=== PATIENT | female | born 1995 | race American Indian/Alaskan Native ===

== ENCOUNTER 2017-09-18 17:50 | Emergency (ER) | payer OTHER ==
[~2017-09-18] VITALS: Ht 154.9 cm; Wt 61.2 kg
[2017-09-18] MEDS ORDERED: IBUPROFEN600 MG PO (18:17)
[2017-09-18] MEDS ORDERED: CYCLOBENZAPRINE5 MG PO (18:17)
--- OUTSIDE RECORDS SUMMARY | 2017-09-18 19:41 | XMS | Encounter Summary ---
Demographics + + + | Address | [address] | | | [place] [address] | + + + | Home Phone | | + + + | Preferred Language | Unknown | + + + | Marital Status | Single | + + + | Yarsani Affiliation | Unknown | + + + | Race | Unknown | + + + | Ethnic Group | Unknown | + + + Author + + + | Author | [facility] | + + + | Organization | [facility] | + + + | Address | Unknown | + + + | Phone | Unavailable | + + + Support + + + + + | Name | Relationship | Address | Phone | + + + + + | Clari Curry | ECON | [address] | | | | | [place] | | | | | [address] | | + + + + + Care Team Providers + +------+ + | Care City Magistrate Name | Role | Phone | + +------+ + PCP | Unavailable | + +------+ + Reason for Visit + + + | Reason | Comments | + + + | Abdominal Pain | | + + + | Rash | scattered to arms | + + + Auth/Cert +--------+--------+ + + + + | Status | Reason | Specialty | Diagnoses / | Referred By | Referred To | | | | | Procedures | Contact | Contact | +--------+--------+ + + + + | | | | Diagnoses | | | | | | | Acute | | | | | | | cystitis | | | | | | | with | | | | | | | hematuria | | | +--------+--------+ + + + + Encounter Details +--------+ + + + + | Date | Type | Department | Care Team | Description | +--------+ + + + + | 09/08/ | Emergency | [facility] | Talat Fraser DO | Acute cystitis with | | 2017 | [facility] | [address] | hematuria (Primary | | | | Emergency Department | EMERGENCY DEPARTMENT | Dx) | | | | [address] | [place] [address] | | | | | [place] [address] | [phone] | | | | | [phone] | | | +--------+ + + + + Social History + +-------+ +--------+------+ | Tobacco Use | Types | Packs/Day | Years | Date | | | | | Used | | + +-------+ +--------+------+ | Current Every Day | | 1 | 5 | | | Smoker | | | | | + +-------+ +--------+------+ + + +---------+ + | Alcohol Use | Drinks/We | oz/Week | Comments | | | ek | | | + + +---------+ + | No | | | | + + +---------+ + + + + | Sex Assigned at | Date Recorded | | | | + + + | Not on file | | + + + as of this encounter Last Filed Vital Signs + + + + | Vital Sign | Reading | Time Taken | + + + + | Blood Pressure | 94/50 | 09/08/2017 4:15 AM PDT | + + + + | Pulse | 80 | 09/08/2017 4:15 AM PDT | + + + + | Temperature | 36.1 C (97 F) | 09/08/2017 4:15 AM PDT | + + + + | Respiratory Rate | 16 | 09/08/2017 4:15 AM PDT | + + + + | Oxygen Saturation | 99% | 09/08/2017 4:15 AM PDT | + + + + | Inhaled Oxygen | - | - | | Concentration | | | + + + + | Weight | 58.9 kg (129 lb 13.6 | 09/08/2017 1:30 AM PDT | | | oz) | | + + + + | Height | - | - | + + + + | Body Mass Index | - | - | + + + + in this encounter Discharge Instructions The following attachments cannot be sent through Care Everywhere.Urinary Tract Infections i n Women (Cook Islander)in this encounter Medications at Time of Discharge + + +--------+---------+ + + | Medication | Sig. | Disp. | Refills | Start | End Date | | | | | | Date | | + + +--------+---------+ + + | acetaminophen | Take 500 mg by mouth | | | | | | (TYLENOL) 500 MG | every 6 (six) hours | | | | | | tablet | as needed for Pain. | | | | | + + +--------+---------+ + + | | Take 1 tablet by | | | | | | HYDROcodone-acetamin | mouth every 6 (six) | | | | | | ophen (NORCO) 5-325 | hours as needed for | | | | | | MG per tablet | Pain. | | | | | + + +--------+---------+ + + | ibuprofen (MOTRIN) | Take 600 mg by mouth | | | | | | 600 MG tablet | every 6 (six) hours | | | | | | | as needed for Pain. | | | | | + + +--------+---------+ + + | | Take 1 tablet by | | | | | | oxyCODONE-acetaminop | mouth every 4 (four) | | | | | | hen (PERCOCET) 5-325 | hours as needed for | | | | | | MG per tablet | Pain. | | | | | + + +--------+---------+ + + | | Take 1 tablet by | 14 | 0 | 09/09/19 | | | sulfamethoxazole-tri | mouth 2 (two) times | tablet | | 18 | 8 | | methoprim (BACTRIM | daily for 7 days. | | | | | | DS) 800-160 MG per | | | | | | | tablet | | | | | | + + +--------+---------+ + + as of this encounter Plan of Treatment Not on fileas of this encounter Results Urine culture (09/08/2017 3:07 AM) + + + + | Component | Value | Ref Range | + + + + | Specimen Description | URINE, COLLECTION NOT GIVEN | | + + + + | CULTURE | >100,000 CFU/ML | | + + + + | CULTURE | ESCHERICHIA COLI (A) | | + + + + + + + | Specimen | Performing Laboratory | + + + | Urine, Unspecified | [facility] [address] [place], | | Source | [place] [address] | + + + + + +--------+ + | Organism | Antibiotic | Method | Susceptibility | + + +--------+ + | Escherichia coli | Ampicillin | JAZLYN | SUSCEPTIBLE: | | | | | Sensitive | + + +--------+ + | Escherichia coli | Ampicillin + | JAZLYN | SUSCEPTIBLE: | | | Sulbactam | | Sensitive | + + +--------+ + | Escherichia coli | Cefepime | JAZLYN | SUSCEPTIBLE: | | | | | Sensitive | + + +--------+ + | Escherichia coli | Cefoxitin | JAZLYN | SUSCEPTIBLE: | | | | | Sensitive | + + +--------+ + | Escherichia coli | Ceftazidime | JAZLYN | SUSCEPTIBLE: | | | | | Sensitive | + + +--------+ + | Escherichia coli | Ceftriaxone | JAZLYN | SUSCEPTIBLE: | | | | | Sensitive | + + +--------+ + | Escherichia coli | Ciprofloxacin | JAZLYN | SUSCEPTIBLE: | | | | | Sensitive | + + +--------+ + | Escherichia coli | Gentamicin | JAZLYN | SUSCEPTIBLE: | | | | | Sensitive | + + +--------+ + | Escherichia coli | Levofloxacin | JAZLYN | SUSCEPTIBLE: | | | | | Sensitive | + + +--------+ + | Escherichia coli | Nitrofurantoin | JAZLYN | SUSCEPTIBLE: | | | | | Sensitive | + + +--------+ + | Escherichia coli | Tobramycin | JAZLYN | SUSCEPTIBLE: | | | | | Sensitive | + + +--------+ + | Escherichia coli | Trimethoprim + | JAZLYN | SUSCEPTIBLE: | | | Sulfamethoxazole | | Sensitive | + + +--------+ + Urinalysis (reflex to micro/reflex to culture) (09/08/2017 3:07 AM) + + + + | Component | Value | Ref Range | + + + + | COLOR UA | CIELO | | + + + + | CLARITY | HAZY | | + + + + | Specific [place], UA | 1.027 | 1.002 - 1.030 | + + + + | LEUKOCYTE ESTERASE | MODERATE (A) | NEGATIVE | + + + + | NITRITE | POSITIVE (A) | NEGATIVE | + + + + | UROBILINOGEN | 2.0 (H) | <1.1 mg/dL | + + + + | PROTEIN | 30 (A) | NEGATIVE mg/dL | + + + + | PH,URINE | 5.0 | 5.0 - 8.0 | + + + + | BLOOD | SMALL (A) | NEGATIVE | + + + + | KETONES | TRACE (A) | NEGATIVE mg/dL | + + + + | BILIRUBIN | NEGATIVE | NEGATIVE | + + + + | GLUCOSE | NEGATIVE | NEGATIVE mg/dL | + + + + | WBC | 26-49 | 0 - 5 /hpf | + + + + | RBC | 3-5 | 0 - 5 /hpf | + + + + | BACTERIA | 2+ (A) | NONE SEEN | + + + + | EPITHELIAL | 6-10 | /lpf | + + + + | Mucus, UA | 4+Comment: Testing performed at [facility];[address] | | | | [address];[place] [address] | | + + + + + + + | Specimen | Performing Laboratory | + + + | Urine, Clean Catch | [facility] [address] [place] [address] | + + + Urine test (LAB) (09/08/2017 3:07 AM) + + + + | Component | Value | Ref Range | + + + + | Preg Test, Ur | NEGATIVEComment: Testing performed at | NEGATIVE | | | [facility];[address] [place] [address];[place] [address] | | + + + + + + + | Specimen | Performing Laboratory | + + + | Urine - Urine, Clean | [facility] [address] [place] [address] | | Catch | | + + + CBC W/Auto Diff (Reflex to Manual) (09/08/2017 2:25 AM) + + + + | Component | Value | Ref Range | + + + + | WBC | 7.83 | 3.80 - 11.00 K/uL | + + + + | RBC | 4.54 | 3.70 - 5.10 M/uL | + + + + | HGB | 12.4 | 11.3 - 15.5 g/dL | + + + + | HCT | 37.0 | 34.0 - 46.0 % | + + + + | MCV | 81.5 | 80.0 - 100.0 fl | + + + + | MCH | 27.4 | 27.0 - 34.0 pg | + + + + | MCHC | 33.6 | 32.0 - 35.5 g/dL | + + + + | RDW SD | 44.6 | 37 - 53 fl | + + + + | PLT | 265 | 150 - 400 K/uL | + + + + | MPV | 8.9 | fl | + + + + | DIFF TYPE | AUTOMATED | | + + + + | NEUTROPHILS | 68.04 | % | + + + + | LYMPHOCYTES | 24.10 | % | + + + + | MONOCYTES | 6.17 | % | + + + + | EOSINOPHILS | 0.92 | % | + + + + | BASOPHILS | 0.77 | % | + + + + | NEUTROPHILS ABS | 5.33 | 1.90 - 7.40 K/uL | + + + + | LYMPHOCYTES ABS | 1.89 | 1.00 - 3.90 K/uL | + + + + | MONOCYTES ABS | 0.48 | 0.00 - 0.80 K/uL | + + + + | EOSINOPHILS ABS | 0.07 | 0.00 - 0.50 K/uL | + + + + | BASOPHILS ABS | 0.06Comment: Testing performed at [facility];[address] | 0.00 - 0.10 K/uL | | | [address];[place] [address] | | + + + + + + + | Specimen | Performing Laboratory | + + + | | [address] [place] [address] | + + + C-reactive protein (09/08/2017 1:52 AM) + + + + | Component | Value | Ref Range | + + + + | CRP | 1.9 (H)Comment: Testing performed at | <0.5 mg/dL | | | [facility];[address]ior[address] [facility];[place] [address] | | + + + + + + + | Specimen | Performing Laboratory | + + + | Blood | [facility] [address] [facility] [place] [address] | + + + Lipase (09/08/2017 1:52 AM) + + + + | Component | Value | Ref Range | + + + + | LIPASE | 102Comment: Testing performed at [facility];8 | 73 - 393 U/L | | | [facility];[place] [address] | | + + + + + + + | Specimen | Performing Laboratory | + + + | Blood | [facility] [address] [place] [address] [facility] [place] [place] [address] | + + + Comprehensive metabolic panel (09/08/2017 1:52 AM) + + + + | Component | Value | Ref Range | + + + + | SODIUM | 137 | 135 - 145 mmol/L | + + + + | POTASSIUM | 3.9Comment: [facility] HEMOLYSIS | 3.5 - 4.9 mmol/L | + + + + | CHLORIDE | 106 | 99 - 109 mmol/L | + + + + | CO2 | 24 | 23 - 32 mmol/L | + + + + | ANION GAP AGAP | 11 | 5 - 20 mmol/L | + + + + | GLUCOSE | 94 | 65 - 99 mg/dL | + + + + | BUN | 14 | 8 - 25 mg/dL | + + + + | CREATININE | 0.68 | 0.50 - 1.00 mg/dL | + + + + | BUN/CREAT | 20 | | + + + + | CALCIUM | 9.2 | 8.5 - 10.5 mg/dL | + + + + | TOTAL PROTEIN | 7.7 | 6.3 - 8.2 g/dL | + + + + | Albumin | 3.6 | 3.6 - 5.0 g/dL | + + + + | GLOBULIN | 4.1 | 1.3 - 4.9 g/dL | + + + + | A/G | 0.9 (L) | 1.0 - 2.4 | + + + + | TBIL | 1.0 | 0.1 - 1.5 mg/dL | + + + + | ALK PHOS | 87 | 35 - 115 U/L | + + + + | AST | 31Comment: SLT HEMOLYSIS | 10 - 45 U/L | + + + + | ALT | 84 (H) | 10 - 65 U/L | + + + + | EGFR | >60Comment: GFR <60: CHRONIC KIDNEY | >60 mL/min/1.73m2 | | | DISEASE, IF FOUND OVER A 3 MONTH PERIOD.GFR | | | | <15: KIDNEY FAILURE.FOR AMERICANS, | | | | MULTIPLY THE CALCULATED GFR BY | | | | 1.210.Testing performed at [facility];[address] [place] [address] | | | | [facility];[place] [address] | | | | | | + + + + + + + | Specimen | Performing Laboratory | + + + | Blood | [facility] [address] [place] [address] | + + + in this encounter Visit Diagnoses + + | Diagnosis | + + | Acute cystitis with hematuria - Primary | + + | Acute cystitis | + + Admitting Diagnoses + + | Diagnosis | + + | Acute cystitis with hematuria | + + | Acute cystitis | + + Administered Medications + +---------+ +------+-------+------+ | Medication Order | MAR | Action | Dose | Rate | Site | | | Action | Date | | | | + +---------+ +------+-------+------+ | cefTRIAXone (ROCEPHIN) IVPB 1 g | New Bag | | 1 g | 100 | | | 1 g, Intravenous, Administer | | 8 03:50 | | mL/hr | | | over 30 Minutes, Once, Tue | | PDT | | | | | 09/08/17 at 0338, For 1 dose | | | | | | + +---------+ +------+-------+------+ +---+---+ | | | +---+---+ + +-------+ +-------+---+---+ | ketorolac (TORADOL) injection | Given | | 15 mg | | | | 15 mg 15 mg, Intravenous, Once, | | 8 02:05 | | | | | 09/08/17 at 0150, For 1 dose | | PDT | | | | + +-------+ +-------+---+---+ +---+---+ | | | +---+---+ + +-------+ +------+---+---+ | ondansetron (ZOFRAN) injection | Given | | 4 mg | | | | 4 mg 4 mg, Intravenous, Once, | | 8 02:05 | | | | | 09/08/17 at 0150, For 1 dose | | PDT | | | | + +-------+ +------+---+---+ + +---+ | | | + +---+ | sodium chloride 0.9 % flush 10 | | | mL 10 mL, Intravenous, Every 8 | | | Hours, First dose on Thu09/08/17 | | | at 0150 | | + +---+ | | | + +---+ in this encounter"
--- OUTSIDE RECORDS SUMMARY | 2017-09-18 19:41 | XMS | Encounter Summary ---
Demographics + + + | Address | [address] | | | [place] [address] | + + + | Home Phone | | + + + | Preferred Language | Unknown | + + + | Marital Status | Single | + + + | Denominational Affiliation | Unknown | + + + | Race | Unknown | + + + | Ethnic Group | Unknown | + + + Author + + + | Author | [facility] | + + + | Organization | [facility] | + + + | Address | Unknown | + + + | Phone | Unavailable | + + + Support + + + + + | Name | Relationship | Address | Phone | + + + + + | Clari Curry | ECON | [address] | | | | | [place] | | | | | [address] | | + + + + + Care Team Providers + +------+ + | Care Supplier Specialist Name | Role | Phone | + [...] + + | 09/08/ | Emergency | [facility] | Talat Fraser DO | Acute cystitis with | | 2017 | [facility] | [address] | hematuria (Primary | | | | Emergency Department | EMERGENCY DEPARTMENT | Dx) | | | | [address] | [place] [address] | | | | | [place] [address] | [phone] | | | | | [phone] | | | +--------+ + + + [...] Care Everywhere.Urinary Tract Infections i n Women (Haitian)in this encounter Medications at Time of Discharge [...] + + + | Urine, Unspecified | [facility] [address] [place], | | Source | [place] [address] | + + + + + +--------+ [...] | + + + + | Specific [place], UA | 1.027 | 1.002 - 1.030 [...] Mucus, UA | 4+Comment: Testing performed at [facility];[address] | | | | [address];[place] [address] | | + + + + + + + | Specimen | Performing Laboratory | + + + | Urine, Clean Catch | [facility] [address] [place] [address] | + + + Urine test (LAB) (09/08/2017 3:07 AM) + + + + | Component | Value | Ref Range | + + + + | Preg Test, Ur | NEGATIVEComment: Testing performed at | NEGATIVE | | | [facility];[address] [place] [address];[place] [address] | | + + + + + + + | Specimen | Performing Laboratory | + + + | Urine - Urine, Clean | [facility] [address] [place] [address] | | Catch | | + + [...] BASOPHILS ABS | 0.06Comment: Testing performed at [facility];[address] | 0.00 - 0.10 K/uL | | | [address];[place] [address] | | + + + + + + + | Specimen | Performing Laboratory | + + + | | [address] [place] [address] | + + + C-reactive protein (09/08/2017 1:52 AM) + + + + | Component | Value | Ref Range | + + + + | CRP | 1.9 (H)Comment: Testing performed at | <0.5 mg/dL | | | [facility];[address] [facility];[place] [address] | | + + + + + + + | Specimen | Performing Laboratory | + + + | Blood | [facility] [address] [facility] [place] [address] | + + + Lipase (09/08/2017 1:52 AM) + + + + | Component | Value | Ref Range | + + + + | LIPASE | 102Comment: Testing performed at [facility];8 | 73 - 393 U/L | | | [facility];[place] [address] | | + + + + + + + | Specimen | Performing Laboratory | + + + | Blood | [facility] [address] [place] [address] [facility] [place] [place] [place] [id number] | + + + Comprehensive metabolic panel [...] | | | | 1.210.Testing performed at [facility];[address] [place] [address] | | | | [facility];[place] [address] | | | | | | + + + + + + + | Specimen | Performing Laboratory | + + + | Blood | [facility] [address] [place] [address] | + + + in this encounter [...]
--- OUTSIDE RECORDS SUMMARY | 2017-09-18 19:41 | XMS | Clinical Summary ---
Demographics + + + | Address | [address] [place] [address] RD | | | [place] [address] | + + + | Home Phone | | + + + | Preferred Language | Unknown | + + + | Marital Status | Single | + + + | Anabaptism Affiliation | Unknown | + + + | Race | Unknown | + + + | Ethnic Group | Unknown | + + + Author + + + | Author | [facility] | + + + | Organization | [facility] | + + + | Address | Unknown | + + + | Phone | Unavailable | + + + Support + + + + + | Name | Relationship | Address | Phone | + + + + + | Clari Curry | ECON | [address] | | | | | [place] | | | | | [address] | | + + + + + Care Team Providers + +------+ + | Care Mud Mill Tender Name | Role | Phone | + +------+ + PP | Unavailable | + +------+ + Allergies No Known Allergies Current Medications + + +--------+---------+------+------+-------+ | Prescription | Sig. | Disp. | Refills | Star | End | Statu | | | | | | t | Date | s | | | | | | Date | | | + + +--------+---------+------+------+-------+ | | Take 1 tablet by | | | | | Activ | | HYDROcodone-acetamin | mouth every 6 (six) | | | | | e | | ophen (NORCO) 5-325 | hours as needed for | | | | | | | MG per tablet | Pain. | | | | | | + + +--------+---------+------+------+-------+ | | Take 1 tablet by | | | | | Activ | | oxyCODONE-acetaminop | mouth every 4 (four) | | | | | e | | hen (PERCOCET) 5-325 | hours as needed for | | | | | | | MG per tablet | Pain. | | | | | | + + +--------+---------+------+------+-------+ | acetaminophen | Take 500 mg by mouth | | | | | Activ | | (TYLENOL) 500 MG | every 6 (six) hours | | | | | e | | tablet | as needed for Pain. | | | | | | + + +--------+---------+------+------+-------+ | ibuprofen (MOTRIN) | Take 600 mg by mouth | | | | | Activ | | 600 MG tablet | every 6 (six) hours | | | | | e | | | as needed for Pain. | | | | | | + + +--------+---------+------+------+-------+ | | Take 1 tablet by | 14 | 0 | 04/2 | 05/0 | Expir | | sulfamethoxazole-tri | mouth 2 (two) times | tablet | | 09/04 | 20 | ed | | methoprim (BACTRIM | daily for 7 days. | | | 18 | 18 | | | DS) 800-160 MG per | | | | | | | | tablet | | | | | | | + + +--------+---------+------+------+-------+ Active Problems Not on file Encounters +--------+ + + + + | Date | Type | Specialty | Care Team | Description | +--------+ + + + + | 09/08/ | Emergency | | Talat Fraser DO | Acute cystitis with | | 2017 | | | | hematuria (Primary | | | | | | Dx) | +--------+ + + + + from Last 3 Months Social History + +-------+ +--------+------+ | Tobacco [...] on file | | + + + Last Filed Vital Signs + + + [...] | - | + + + + Plan of Treatment Not on file Results Urinalysis (reflex to micro/reflex to culture) (09/08/2017 3:07 AM) + + + + | Component | Value | Ref Range | + + + + | COLOR UA | CIELO | | + + + + | CLARITY | HAZY | | + + + + | Specific [place], UA | 1.027 | 1.002 - 1.030 [...] Mucus, UA | 4+Comment: Testing performed at [facility];8 | | | | [address];[place] [address] | | + + + + + + + | Specimen | Performing Laboratory | + + + | Urine, Clean Catch | [facility] [address] [place] [address] | + + + Urine test (LAB) (09/08/2017 3:07 AM) + + + + | Component | Value | Ref Range | + + + + | Preg Test, Ur | NEGATIVEComment: Testing performed at | NEGATIVE | | | [facility];[address] [place] [address];[place] [address] | | + + + + + + + | Specimen | Performing Laboratory | + + + | Urine - Urine, Clean | [facility] [address] [place] [address] | | Catch | | + + + Urine culture (09/08/2017 3:07 AM) + + [...] + + + | Urine, Unspecified | [facility] [address], | | Source | [place] [address] | + + + + + +--------+ [...] | Sensitive | + + +--------+ + CBC W/Auto Diff (Reflex to Manual) [...] BASOPHILS ABS | 0.06Comment: Testing performed at [facility] | 0.00 - 0.10 K/uL | | | Aurelio [facility];[place] [address] | | + + + + + + + | Specimen | Performing Laboratory | + + + | | [address] [place] [address] | + + + C-reactive protein (09/08/2017 1:52 AM) + + + + | Component | Value | Ref Range | + + + + | CRP | 1.9 (H)Comment: Testing performed at | <0.5 mg/dL | | | [facility];[address] [place] [address];[place] [address] | | + + + + + + + | Specimen | Performing Laboratory | + + + | Blood | [facility] [address] [place] [address] | + + + Lipase (09/08/2017 1:52 AM) + + + + | Component | Value | Ref Range | + + + + | LIPASE | 102Comment: Testing performed at [facility];[address] | 73 - 393 U/L | | | [facility];[place] [address] | | + + + + + + + | Specimen | Performing Laboratory | + + + | Blood | [facility] [address] [place] [address] | + + + Comprehensive metabolic panel [...] | | | | 1.210.Testing performed at [facility];[address] [place] [address] | | | | Blvd;[place] [address] | | | | | | + + + + + + + | Specimen | Performing Laboratory | + + + | Blood | [facility] [address] [place] [address] | + + + from Last 3 Months Insurance + +--------+ +------+-------+ + | Payer | Benefi | Subscriber | Type | Phone | Address | | | t Plan | ID | | | | | | / | | | | | | | Group | | | | | + +--------+ +------+-------+ + | MEDICAID | [place] | xxxxxxxx | | | [address] | | | N | | | | [place] | | | [place] | | | | [phone] | | | [employer] | | | | | + +--------+ +------+-------+ + + +--------+ +--------+ + + | Guarantor Name | Accoun | Relation to | Date | Phone | Billing Address | | | t Type | Patient | of | | | | | | | | | | + +--------+ +--------+ + + | YAMILET GONZALEZ | Person | Self [birth year] Home: | [address] | | | al/Fam | | [phone] | [phone] [place] [address] | | | bettina | | | [phone] | | + +--------+ +--------+ + +"
--- OUTSIDE RECORDS SUMMARY | 2017-09-18 19:41 | XMS | Clinical Summary ---
Demographics + + + | Address | [address] [place] [address] RD | | | [place] [address] | + + + | Home Phone | | + + + | Preferred Language | Unknown | + + + | Marital Status | Single | + + + | Mandaen Affiliation | Unknown | + + + | Race | Unknown | + + + | Ethnic Group | Unknown | + + + Author + + + | Author | [facility] | + + + | Organization | [facility] | + + + | Address | Unknown | + + + | Phone | Unavailable | + + + Support + + + + + | Name | Relationship | Address | Phone | + + + + + | Clari Curry | ECON | [address] | | | | | [place] | | | | | [address] | | + + + + + Care Team Providers + +------+ + | Care Casino Host Name | Role | Phone | + [...] | + + + + | Specific Weed, UA | 1.027 | 1.002 - 1.030 [...] Mucus, UA | 4+Comment: [place] [facility] | | | | Aurelio Moran;[place] [address] | | + + + + + + + | Specimen | Performing Laboratory | + + + | Urine, Clean Catch | [facility] [address] [place] [address] | + + + Urine test (LAB) (09/08/2017 3:07 AM) + + + + | Component | Value | Ref Range | + + + + | Preg Test, Ur | NEGATIVEComment: Testing performed at | NEGATIVE | | | [facility];[address] [place] [address];[place] [address] | | + + + + + + + | Specimen | Performing Laboratory | + + + | Urine - Urine, Clean | [facility] [address] [place] [address] | | Catch | | + + [...] + + + | Urine, Unspecified | [facility] [address] [facility] [place], | | Source | [place] [address] | + + + + + +--------+ [...] BASOPHILS ABS | 0.06Comment: Testing performed at [facility] | 0.00 - 0.10 K/uL | | | [facility];[place] [address] | | + + + + + + + | Specimen | Performing Laboratory | + + + | | [address] [place] [address] | + + + C-reactive protein (09/08/2017 1:52 AM) + + + + | Component | Value | Ref Range | + + + + | CRP | 1.9 (H)Comment: Testing performed at | <0.5 mg/dL | | | [facility];[address] [place] [address];[place] [address] | | + + + + + + + | Specimen | Performing Laboratory | + + + | Blood | [facility] [address] [place] [address] | + + + Lipase (09/08/2017 1:52 AM) + + + + | Component | Value | Ref Range | + + + + | LIPASE | 102Comment: Testing performed at [facility];[address] | 73 - 393 U/L | | | [facility];[place] [address] | | + + + + + + + | Specimen | Performing Laboratory | + + + | Blood | [facility] [address] [place] [address] | + + + Comprehensive metabolic panel [...] | | | | 1.210.Testing performed at [facility];[address] [place] [address] | | | | Blvd;[place] [address] | | | | | | + + + + + + + | Specimen | Performing Laboratory | + + + | Blood | [facility] [address] [place] [address] | + + + from Last 3 [...] | | S[employer]OTER | | | | [address] | | | 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
== END 2017-09-18 19:38 | disposition home or self-care (01) ==
LOC: ED 17:50
DX: S39.012A Strain of muscle, fascia and tendon of lower back, initial encounter (principal); F17.200 Nicotine dependence, unspecified, uncomplicated; X58.XXXA Exposure to other specified factors, initial encounter; Y93.01 Activity, walking, marching and hiking
CPT/HCPCS: 72100; 81001; 84703; 99283

== ENCOUNTER 2018-02-17 05:38 | Emergency (ER) | payer OTHER ==
[~2018-02-17] VITALS: Ht 154.9 cm; Wt 61.2 kg
--- OUTSIDE RECORDS SUMMARY | ~2018-02-17 | XMS | Clinical Summary ---
Demographics + + + | Address | [address] [place] [address] RD | | | [place] [address] | + + + | Home Phone | | + + + | Preferred Language | Unknown | + + + | Marital Status | Single | + + + | Islam Affiliation | Unknown | + + + | Race | Unknown | + + + | Ethnic Group | Unknown | + + + Author + + + | Author | [facility] | + + + | Organization | [facility] | + + + | Address | Unknown | + + + | Phone | Unavailable | + + + Support + + + + + | Name | Relationship | Address | Phone | + + + + + | Clari Curry | ECON | [address] | | | | | [place] | | | | | [address] | | + + + + + Care Team Providers + +------+ + | Care Strip Catcher Name | Role | Phone | + [...] +------+-------+ + | MEDICAID | [place] | [id number] | | | [address] | | | N | | | | [place], [place] | | | [place] | | | | [address] | | | STORE STANDARDS ASSOCIATE | | | | | + +--------+ [...] | Self | [birth year] | Home: | [address] | | | al/Fam | | 1995 | [phone]- | [place] [address] | | | [place] | | | [phone] | | + +--------+ +--------+ + +"
--- OUTSIDE RECORDS SUMMARY | ~2018-02-17 | XMS | Clinical Summary ---
Demographics + + + | Address | [address] [place] [address] RD | | | [place] [address] | + + + | Home Phone | | + + + | Preferred Language | Unknown | + + + | Marital Status | Single | + + + | Druze Affiliation | Unknown | + + + | Race | Unknown | + + + | Ethnic Group | Unknown | + + + Author + + + | Author | [facility] | + + + | Organization | [facility] | + + + | Address | Unknown | + + + | Phone | Unavailable | + + + Support + + + + + | Name | Relationship | Address | Phone | + + + + + | Clari Curry | ECON | [address] | | | | | [place] | | | | | [address] | | + + + + + Care Team Providers + +------+ + | Care Fruit Tester Name | Role | Phone | + [...] +------+-------+ + | MEDICAID | [place] | [id number] | | | [address] | | | N | | | | [place], [place] | | | [place] | | | | [address] | | | HEAD INSPECTOR | | | | | + +--------+ [...] | Self | [birth year] | Home: | [address] | | | al/Fam | | 1995 | [phone]--[birth year]- | [place] [address] | | | [place] | | | [address] | | + +--------+ +--------+ + +"
[~2018-02-17 05:38] MED LIST: CYCLOBENZAPRINE5 MG PO; IBUPROFEN600 MG PO
--- OUTSIDE RECORDS SUMMARY | 2018-02-17 05:44 | XMS ---
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 E.Dino [facility] (12 MO.) [facility] TOTAL 3 NOTE: Visits indicate total known visits. ED/C VISIT TRACKING (12 MO.) 02/17/2018 05:39 [facility] Ann TYPE: Emergency COMPLAINT: - R HAND PIAN/INJURY 09/18/2017 17:51 [facility] [place] TYPE: Emergency COMPLAINT: - BACK PAIN/ NO KNOWN INJURY DIAGNOSES: - Low back pain - Exposure to other specified factors, initial encounter - Strain of muscle, fascia and tendon of lower back, initial encounter - Nicotine dependence, unspecified, uncomplicated - Activity, walking, marching and hiking 09/08/2017 01:25 [facility] TYPE: Emergency DIAGNOSES: - Abdominal Pain - Rash - Acute cystitis with hematuria INPATIENT VISIT TRACKING (12 MO.) No inpatient visits to display in this time frame [email or web address]
[2018-02-17] MEDS ORDERED: IBUPROFEN600 MG PO (06:16)
== END 2018-02-17 06:22 | disposition home or self-care (01) ==
LOC: ED 05:38
DX: S60.221A Contusion of right hand, initial encounter (principal); W22.8XXA Striking against or struck by other objects, initial encounter; F17.200 Nicotine dependence, unspecified, uncomplicated
CPT/HCPCS: 73130; 99283

== ENCOUNTER 2018-10-14 13:06 | Emergency (ER) | payer OTHER ==
[~2018-10-14] VITALS: Ht 154.9 cm; Wt 56.5 kg
--- OUTSIDE RECORDS SUMMARY | ~2018-10-14 | XMS | Clinical Summary ---
Demographics + + + | Address | [address] [place] [address] RD | | | [place] [address] | + + + | Home Phone | | + + + | Preferred Language | Unknown | + + + | Marital Status | Single | + + + | Confucianist Affiliation | Unknown | + + + | Race | Unknown | + + + | Ethnic Group | Unknown | + + + Author + + + | Author | [facility] | + + + | Organization | [facility] | + + + | Address | Unknown | + + + | Phone | Unavailable | + + + Support + + + + + | Name | Relationship | Address | Phone | + + + + + | Clari Curry | ECON | [address] | | | | | [place] | | | | | [address] | | + + + + + Care Team Providers + +------+ + | Care Kitchen Bath Designer Name | Role | Phone | + +------+ + PP | Unavailable | + +------+ + Allergies No Known Allergies Current Medications + + +-------+---------+------+------+-------+ | Prescription | Sig. | Disp. | Refills | Star | End | Statu | | | | | | t | Date | s | | | | | | Date | | | + + +-------+---------+------+------+-------+ | | Take 1 tablet by | | | | | Activ | | HYDROcodone-acetamin | mouth every 6 (six) | | | | | e | | ophen (NORCO) 5-325 | hours as needed for | | | | | | | MG per tablet | Pain. | | | | | | + + +-------+---------+------+------+-------+ | | Take 1 tablet by | | | | | Activ | | oxyCODONE-acetaminop | mouth every 4 (four) | | | | | e | | hen (PERCOCET) 5-325 | hours as needed for | | | | | | | MG per tablet | Pain. | | | | | | + + +-------+---------+------+------+-------+ | acetaminophen | Take 500 mg by mouth | | | | | Activ | | (TYLENOL) 500 MG | every 6 (six) hours | | | | | e | | tablet | as needed for Pain. | | | | | | + + +-------+---------+------+------+-------+ | ibuprofen (MOTRIN) | Take 600 mg by mouth | | | | | Activ | | 600 MG tablet | every 6 (six) hours | | | | | e | | | as needed for Pain. | | | | | | + + +-------+---------+------+------+-------+ Active Problems Not on file Social History + +-------+ +--------+------+ | Tobacco [...] Plan of Treatment Not on file Results Not on filefrom Last 3 Months Insurance + +--------+ +------+-------+ + | Payer | Benefi | Subscriber | Type | Phone | Address | | | t Plan | ID | | | | | | / | | | | | | | Group | | | | | + +--------+ +------+-------+ + | MEDICAID | [place] | [id number] | | | [address] | | | N | | | | [place], [place] | | | [place] | | | | [address] | | | [employer] | | | | | + +--------+ [...] | Self | [birth year] | Home: | [address] | | | al/Fam | | 1995 | [birth year]- | [place] [address] | | | [place] | | | [phone] | | + +--------+ +--------+ + +"
--- OUTSIDE RECORDS SUMMARY | ~2018-10-14 | XMS | Clinical Summary ---
Demographics + + + | Address | [address] [place] [address] RD | | | [place] [address] | + + + | Home Phone | | + + + | Preferred Language | Unknown | + + + | Marital Status | Single | + + + | Lutheran Affiliation | Unknown | + + + | Race | Unknown | + + + | Ethnic Group | Unknown | + + + Author + + + | Author | [facility] | + + + | Organization | [facility] | + + + | Address | Unknown | + + + | Phone | Unavailable | + + + Support + + + + + | Name | Relationship | Address | Phone | + + + + + | Clari Curry | ECON | [address] | | | | | [place] | | | | | [address] | | + + + + + Care Team Providers + +------+ + | Care Housing Property Manager Name | Role | Phone | + [...] +------+-------+ + | MEDICAID | [place] | [id number] | | | [address] | | | N | | | | [place], [place] | | | [place] | | | | [phone] | | | SYSTEMS TECHNOLOGIST | | | | | + +--------+ [...] | Self | [birth year] | Home: | [address] | | | al/Fam | | 1995 | [birth year]- | [place] [address] | | | [place] | | | [address] | | + +--------+ +--------+ + +"
--- OUTSIDE RECORDS SUMMARY | 2018-10-14 13:10 | XMS ---
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 ELeonard VISIT COUNT (12 MO[address] [facility] ([facility] 2 [facility] [place] TOTAL 3 NOTE: Visits indicate total known visits. ED/UCC VISIT TRACKING (12 MO.) 10/14/2018 13:07 [facility] [place] TYPE: Emergency COMPLAINT: - DENTAL PAIN 02/17/2018 05:39 [facility] [place] TYPE: Emergency COMPLAINT: - R HAND PIAN/INJURY DIAGNOSES: - Striking against or struck by other objects, initial encounter - Nicotine dependence, unspecified, uncomplicated - Contusion of right hand, initial encounter [facility] DIAGNOSES: - Periapical abscess without sinus INPATIENT VISIT TRACKING (12 MO.) No inpatient visits to display in this time frame [id number]
== END 2018-10-14 13:20 | disposition home or self-care (01) ==
LOC: ED 13:06
DX: K08.89 Other specified disorders of teeth and supporting structures (principal)